=== PATIENT | female | born 1955 | race Caucasian/White ===

== ENCOUNTER → 2017-02-18 | Outpatient (CLI) | payer MEDICARE ==
[~2017-02-18] MED LIST: HYDR12.58 PO; HYDR1TAB12 PO; LISI30TA4 PO; TRAM50TA2 PO; flexeril PO
== END | disposition home or self-care (01) ==
LOC: ROC 10:09
PROVIDERS: ATTEND Radiology Radiation Oncology
DX: C53.9 Malignant neoplasm of cervix uteri, unspecified (principal)
CPT/HCPCS: G0463

== ENCOUNTER → 2018-01-20 | Outpatient (CLI) | payer MEDICARE | END | disposition home or self-care (01) | LOC: ROC 07:54 | PROVIDERS: ATTEND Radiology Radiation Oncology | DX: C53.9 Malignant neoplasm of cervix uteri, unspecified (principal); Z79.899 Other long term (current) drug therapy | CPT/HCPCS: G0463 ==